=== PATIENT | female | born 1980 | race Hispanic/Latino ===

== ENCOUNTER 2021-09-09 07:55 | Emergency (ER) | payer SELFPAY ==
[~2021-09-09] VITALS: Ht 160 cm; Wt 89.4 kg
[2021-09-09] MEDS ORDERED: LEVOTHYROXINE50 MCG PO (08:06)
[2021-09-09] MEDS ORDERED: THERAFLU FLU &1 EAC1 PO (08:12)
[2021-09-09] MEDS ORDERED: LORATADINE10 MG PO (08:12)
[2021-09-09] MEDS ORDERED: IBUPROFEN IB200 MG PO (08:12)
[2021-09-09] MEDS ORDERED: PROBIOTIC & AC1 EACH PO (08:12)
[2021-09-09] MEDS ORDERED: AUGMENTIN 875-1 EACH PO (08:12)
== END 2021-09-09 08:19 | disposition home or self-care (01) ==
LOC: FSED 08:10
DX: H66.91 Otitis media, unspecified, right ear (principal); J30.9 Allergic rhinitis, unspecified; E03.9 Hypothyroidism, unspecified
CPT/HCPCS: 99282